=== PATIENT | female | born 2000 | race Caucasian/White ===

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

== ENCOUNTER 2019-10-18 17:27 | Emergency (ER) | payer OTHER | END 2019-10-18 20:27 | disposition home or self-care (01) | LOC: M.ERS 17:27 | DX: N39.0 Urinary tract infection, site not specified (principal); N83.292 Other ovarian cyst, left side; Z88.0 Allergy status to penicillin; Z88.8 Allergy status to other drugs, medicaments and biological substances ==